=== PATIENT | female | born 1980 | race Two or more races ===

== ENCOUNTER 2016-06-29 07:30 | Emergency (ER) | payer OTHER ==
[~2016-06-29] VITALS: Ht 160 cm; Wt 104.8 kg
[~2016-06-29 07:30] MED LIST: IBUP-1060 PO
[2016-06-29] MEDS ORDERED: KETOROLAC TROMETHAMINE 30 MG/ML SYRINGE. IV ONE (08:00)
[2016-06-29] MEDS ORDERED: IV NORMAL SALINE 1000ML BAG 1,000 ML IV ONE (08:00)
[2016-06-29] MEDS ORDERED: METOCLOPRAMIDE HCL 10 MG/2 ML VIAL. IV ONE (08:00)
[2016-06-29] MEDS ORDERED: DIPHENHYDRAMINE 50 MG/ML VIAL IVP ONE (08:00)
--- NOTE | 2016-06-29 08:54 | RAD ---
Indication severe headache. Axial images of the head were obtained. No prior imaging of the head is available. The calvarium appears unremarkable. There is significant opacification of the right maxillary sinus, right ethmoid air cells and the sphenoid sinus suggesting sinusitis. Clinical correlation advised. There is no subdural or epidural hematoma. The ventricles and sulci are normal. There is no mass or midline shift. An acute finding is not seen. IMPRESSION: Intracranially normal study. Probable sinusitis. Clinical correlation advised. PQRS Compliance Statement: One or more of the following individualized dose reduction techniques were utilized for this examination: 1. Automated exposure control 2. Adjustment of the mA and/or kV according to patient size 3. Use of iterative reconstruction technique
[2016-06-29] MEDS ORDERED: AMOX1TAB61 PO (09:30)
[2016-06-29] MEDS ORDERED: BUTA1CAP29 PO (09:30)
[2016-06-29] MEDS ORDERED: PRED20TA PO (09:30)
--- NOTE | 2016-06-29 09:30 | PHYS DOC ---
Past Medical History Past Medical History: No Pertinent History Past Surgical History: Appendectomy Alcohol Use: None Drug Use: None Adult General Chief Complaint Chief Complaint: FLU SYMPTOM HPI HPI 35-year-old female presents with a 2 day history of severe headache. She states it has waxed and waned but over the last several hours is become constant. She states pain is 10 out of 10. She states it's positional meaning that if she lays back flat it gets worse. She has had some thick sinus drainage. She has not had any fever chills or sweats. No nausea or vomiting. She denies any neck pain or lateralizing neurologic weakness.] Review of Systems Review of Systems Constitutional: Denies fever or chills [] Eyes: Denies change in visual acuity, redness, or eye pain [] HENT: Denies nasal congestion or sore throat [] Respiratory: Denies cough or shortness of breath [] Cardiovascular: No additional information not addressed in HPI [] GI: Denies abdominal pain, nausea, vomiting, bloody stools or diarrhea [] : Denies dysuria or hematuria [] Musculoskeletal: Denies back pain or joint pain [] Integument: Denies rash or skin lesions [] Neurologic: Per history of present illness [] Endocrine: Denies polyuria or polydipsia [] Current Medications Current Medications Current Medications Medications (Trade) Dose Ordered Sig/Adrián Start Time Stop Time Status Last Admin Dose Admin Diphenhydramine HCl (Benadryl) 25 mg 1X ONCE 06/29/16 08:00 06/29/16 08:01 DC 06/29/16 08:01 25 MG Ketorolac Tromethamine (Toradol) 30 mg 1X ONCE 06/29/16 08:00 06/29/16 08:01 DC 06/29/16 08:00 30 MG Metoclopramide HCl (Reglan) 10 mg 1X ONCE 06/29/16 08:00 06/29/16 08:01 DC 06/29/16 08:00 10 MG Sodium Chloride (Iv Sodium Chloride 0.9% 1000ml Bag) 1,000 ml @ 1,000 mls/hr 1X ONCE 06/29/16 08:00 06/29/16 08:59 DC 06/29/16 08:00 1,000 MLS/HR Allergies Allergies Allergies Coded Allergies Type Severity Reaction Last Updated Verified No Known Drug Allergies 12/17/14 No Physical Exam Physical Exam Constitutional: Well developed, well nourished, moderate distress, non-toxic appearance. [] HENT: Normocephalic, atraumatic, bilateral external ears normal, oropharynx moist, no oral exudates, nose normal. [] Eyes: PERRLA, EOMI, conjunctiva normal, no discharge. [] Neck: Normal range of motion, no tenderness, supple, no stridor. [] Cardiovascular:Heart rate regular rhythm, no murmur [] Lungs & Thorax: Bilateral breath sounds clear to auscultation [] Abdomen: Bowel sounds normal, soft, no tenderness, no masses, no pulsatile masses. [] Skin: Warm, dry, no erythema, no rash. [] Back: No tenderness, no CVA tenderness. [] Extremities: No tenderness, no cyanosis, no clubbing, ROM intact, no edema. [] Neurologic: Alert and oriented X 3, normal motor function, normal sensory function, no focal deficits noted. [] Psychologic: Affect normal, judgement normal, mood normal. [] Current Patient Data Vital Signs Vital Signs Date Time Temp Pulse Resp B/P Pulse Ox O2 Delivery O2 Flow Rate FiO2 06/29/16 07:38 98.0 110 20 97 Room Air 98.0 EKG EKG [] Radiology/Procedures Radiology/Procedures [] Impressions: PROCEDURE: HEAD WO CONTRAST Indication severe headache. Axial images of the head were obtained. No prior imaging of the head is available. The calvarium appears unremarkable. There is significant opacification of the right maxillary sinus, right ethmoid air cells and the sphenoid sinus suggesting sinusitis. Clinical correlation advised. There is no subdural or epidural hematoma. The ventricles and sulci are normal. There is no mass or midline shift. An acute finding is not seen. IMPRESSION: Intracranially normal study. Probable sinusitis. Clinical correlation advised. Course & Med Decision Making Course & Med Decision Making Pertinent Labs and Imaging studies reviewed. (See chart for details) [ED course: Evaluation reveals a 35-year-old female with likely a sinus headache however migraine is also in the differential. Patient was treated with IV fluids, Toradol, Reglan and Benadryl. She states this cocktail of medicines did help alleviate her symptoms. Patient is now stable for discharge home.] Dragon Disclaimer Dragon Disclaimer This electronic medical record was generated, in whole or in part, using a voice recognition dictation system. Departure Departure Impression: Primary Impression: Headache Disposition: 01 HOME, SELF-CARE Condition: IMPROVED Referrals: NO PCP (PCP) Patient Instructions: Migraine Headache, Sinus Headache, Sinusitis Additional Instructions: Thank you for allowing us to participate in your care today. Followup with your primary care physician in 3 days if your symptoms do not improve. Return to the emergency department you have any new or concerning findings. This should be evaluated by the primary care physician and any necessary consulting services for continued management within a few days after discharge. Return to emergency room if you have any new or concerning symptoms including but not limited to fever, chills, nausea, vomiting, intractable pain, any new rashes, chest pain, shortness of air, uncontrolled bleeding, difficulty breathing, and/or vision loss. You may have been prescribed medication that can change in your level of thinking and ability to operate machinery. These medications include hydrocodone and Ativan. Also, Benadryl has been known to do this as well. Be sure to check with your pharmacist and ask if the medications you've prescribed can affect your level of consciousness. I recommend not operating heavy machinery or driving while on medication such as these. Scripts Amoxicillin/Potassium Clav (Augmentin 875-125 Tablet)1 Each Tablet1 Tab PO BID SINUSITIS #20 TAB Prov:MARINA NAVAS DO 06/29/16 Butalb/Acetaminophen/Caffeine (Fioricet 50-300-40 Mg Capsule)1 Each Capsule1 Each PO PRN Q4HRS PRN MIGRAINE HEADACHE #30 CAP Prov:MARINA NAVAS DO 06/29/16 Prednisone 20 Mg Tablet2 Tab PO DAILY PRN COUGH #14 TAB Prov:MARINA NAVAS DO 06/29/16 Problem Qualifiers Primary Impression: Headache Headache type: unspecified Headache chronicity pattern: acute headache Intractability: not intractable Qualified Code: R51 - Headache MARINA NAVAS DO Jun 29, 2016 09:30
[2016-06-29 09:46] VITALS: BP 108/70
== END 2016-06-29 09:47 | disposition home or self-care (01) ==
LOC: ER 07:30
DX: R51 Headache (principal)
CPT/HCPCS: 70450; 96361; 96374; 96375; 99284; J1200; J1885; J2765; J7030